=== PATIENT | female | born 1995 | race American Indian/Alaskan Native ===

== ENCOUNTER 2017-03-29 21:36 | Outpatient (CLI) | payer MEDICAID ==
[2017-03-29] MEDS ORDERED: LACTATED RINGERS 500 ML IV ONE (22:27)
[2017-03-29 22:58] LABS: Bacteria,Urine 1+ /HPF (Negative); Bilirubin,Urine NEG (Negative); Blood,Urine NEG (Negative); Color,Urine Yellow (Yellow); Mucus,Urine FEW /HPF; Nitrite,Urine NEG (Negative); Protein,Urine <15 mg/dL mg/dL (Negative); Urobilinogen,Urine < 2.0 mg/dL (<2.0)
[2017-03-29] MEDS ORDERED: ANCEF IM ONE (23:47)
== END 2017-03-29 21:37 | disposition home or self-care (01) ==
LOC: TRG 21:36
PROVIDERS: ATTEND Obstetrics & Gynecology
DX: O26.892 Other specified pregnancy related conditions, second trimester (principal); M54.9 Dorsalgia, unspecified; Z3A.22 22 weeks gestation of pregnancy
CPT/HCPCS: 59025; 81001; 96372; J0690; J7120

== ENCOUNTER 2017-04-04 15:23 | Outpatient (CLI) | payer MEDICAID ==
[2017-04-04 16:01] VITALS: BP 106/67
[2017-04-04] MEDS ORDERED: VISTARIL PO ONE (16:12)
[2017-04-04] MEDS ORDERED: ZOFRAN IV ONE (16:12)
[2017-04-04] MEDS ORDERED: LACTATED RINGERS 1,000 ML IV ONE (16:12)
[2017-04-04] MEDS ORDERED: ROCEPHIN/NS 1 GM/50 ML 1 GM/50 ML BAG IV SCH (17:45)
[2017-04-04] MEDS ORDERED: PERCOCET 5/325 PO ONE (19:23)
[2017-04-04] MEDS ORDERED: LACTATED RINGERS 1,000 ML ONE (19:23)
[2017-04-04] MEDS ORDERED: cefTRIAXone 1 GM in NACL 0.9% 20 ML IV SCH (19:30)
[2017-04-04 19:34] LABS: Alanine Aminotransferase 40 units/L (7-56); Albumin 3.8 g/dL (3.9-5); BUN/Creatinine Ratio 16; Blood Urea Nitrogen 8 mg/dL (7-17); Calcium 8.7 mg/dL (8.4-10.2); Hemolysis Index 3; Lipase 20 units/L (13-60)
[2017-04-04 19:43] LABS: Bacteria,Urine 1+ /HPF (Negative); Bilirubin,Urine NEG (Negative); Blood,Urine NEG (Negative); Color,Urine Yellow (Yellow); Mucus,Urine FEW /HPF; Nitrite,Urine NEG (Negative); Protein,Urine <15 mg/dL mg/dL (Negative)
[2017-04-04] MEDS ORDERED: LACTATED RINGERS 1,000 ML IV SCH (20:00)
== END 2017-04-04 21:10 | disposition home or self-care (01) ==
LOC: TRG 15:23
PROVIDERS: ATTEND Obstetrics & Gynecology
DX: O47.02 False labor before 37 completed weeks of gestation, second trimester (principal); Z3A.23 23 weeks gestation of pregnancy
CPT/HCPCS: 36415; 59025; 80053; 81001; 82150; 83690; 87086; 96360; J0696; J2405; J7120; Q0177

== ENCOUNTER 2017-06-24 20:38 | Inpatient (IN) | payer MEDICAID ==
[2017-06-24] MEDS ORDERED: LACTATED RINGERS 500 ML IV ONE (21:20)
[2017-06-24] MEDS ORDERED: LACTATED RINGERS 1,000 ML ONE (22:57)
[2017-06-24] MEDS ORDERED: POLYCILLIN/NS 2 GM/100 ML 2 GM/100 ML BAG IV ONE (22:57)
[2017-06-24] MEDS ORDERED: LACTATED RINGERS 1,000 ML IV SCH (23:15)
[2017-06-24 23:32] LABS: Hematocrit 32.6 % (30.3-42.9); Hemoglobin 10.7 gm/dl (10.1-14.3); Mean Corpuscular HGB Conc 33 % (30-34); Mean Corpuscular Hemoglobin 27 pg (28-32); Mean Corpuscular Volume 82 fl (79-97); Platelet Count 161 K/mm3 (140-440); Red Cell Distribution Width 12.7 % (13.2-15.2)
[2017-06-25] MEDS ORDERED: SUBLIMAZE IV PRN (00:29)
[2017-06-25] MEDS ORDERED: PITOCin/NS 20 UNIT/1000ML DRIP 20 UNITS/1,000 ML BAG IV SCH (03:00)
[2017-06-25] MEDS ORDERED: AMPICILLIN/NS 1 GM/50 ML 1 GM/50 ML BAG IV SCH (03:00)
[2017-06-25] MEDS ORDERED: ePHEDrine SULFATE ONE (03:03)
[2017-06-25] MEDS ORDERED: NARCAN 2 MG/2 ML IV PRN (03:41)
[2017-06-25] MEDS ORDERED: ePHEDrine SULFATE IV PRN (03:41)
--- NOTE | 2017-06-25 03:41 | Anesthesia Day of Surgery ---
Anesthesia Day of Surgery - Day of Surgery Patient Examined: Yes Patient H&P Reviewed: Yes Patient is NPO: Yes
--- NOTE | 2017-06-25 03:41 | Anesthesia Consultation ---
Anesthesia Consult and Med Hx Date of service: 06/25/17 - Airway Anesthetic Teeth Evaluation: Good ROM Head & Neck: Adequate Mental/Hyoid Distance: Adequate Mallampati Class: Class I Intubation Access Assessment: Good - Pulmonary Exam CTA: Yes - Cardiac Exam Cardiac Exam: RRR - Pre-Operative Health Status ASA Pre-Surgery Classification: ASA2 Proposed Anesthetic Plan: Epidural, Spinal - Pulmonary Hx Asthma: No COPD: No Hx Pneumonia: No - Cardiovascular System Hx Hypertension: No - Central Nervous System Hx Seizures: No Hx Psychiatric Problems: No - Endocrine Hx Renal Disease: No Hx End Stage Renal Disease: No Hx Hypothyroidism: No Hx Hyperthyroidism: No - Hematic Hx Anemia: No Hx Sickle Cell Disease: No - Other Systems Hx Alcohol Use: No
[2017-06-25] MEDS ORDERED: fentaNYL-BUPIV 2 MCG/ML-0.125% 200 MCG/100 ML BAG EPIDURAL SCH (04:00)
[2017-06-25] MEDS ORDERED: POLYCILLIN/NS 2 GM/100 ML 2 GM/100 ML BAG IV SCH (06:00)
[2017-06-25] MEDS ORDERED: MINERAL OIL ONE (07:16)
--- NOTE | 2017-06-25 07:44 | History and Physical Report ---
History of Present Illness Date of examination: 06/25/17 Date of admission: 06/24/17 22:14 Chief complaint: My water broke History of present illness: Patient is a 22 year old who presents at 35.1 weeks with complaint of leaking of fluid. Past History Past Medical History: no pertinent history Family/Genetic History: none Social history: single - Obstetrical History Expected Date of Delivery: 07/28/17 Actual Gestation: 35 Week(s) 2 Day(s) : 1 Para: 0 Medications and Allergies Allergies Allergy/AdvReac Type Severity Reaction Status Date / Time No Known Allergies Allergy Verified 04/04/17 16:07 Home Medications Medication Instructions Recorded Confirmed Last Taken Type Acetaminophen [Tylenol Extra 500 mg PO PRN 06/24/17 06/24/17 06/20/17 History Strength] Ibuprofen 600 mg PO Q6H PRN #30 tablet 06/25/17 Unknown Rx Vit-Fe Fumar-FA [ 1 tab PO QDAY #60 tablet 06/25/17 Unknown Rx Vitamin] Active Meds: Active Medications Ephedrine Sulfate (Ephedrine Sulfate) 10 mg IV Q2M PRN PRN Reason: Hypotension Fentanyl (Sublimaze) 100 mcg IV Q2H PRN PRN Reason: Pain Last Admin: 06/25/17 02:01 Dose: 100 mcg Lactated Ringer's (Lactated Ringers) 1,000 mls @ 125 mls/hr IV DIRECT KIN Last Admin: 06/25/17 02:56 Dose: 999 mls/hr Ampicillin Sodium (Ampicillin/Ns 1 Gm/50 Ml) 1 gm in 50 mls @ 100 mls/hr IV Q4HR KIN; Protocol Last Admin: 06/25/17 03:11 Dose: 100 mls/hr Oxytocin/Sodium Chloride (Pitocin/Ns 20 Unit/1000ml Drip) 20 units in 1,000 mls @ 125 mls/hr IV DIRECT KIN Fentanyl/Bupivacaine/Sodium Chlor (Fentanyl-Bupiv 2 Mcg/Ml-0.125%) 200 mcg in 100 mls @ 10 mls/hr EPIDURAL TITR KIN; Protocol Last Admin: 06/25/17 04:57 Dose: 10 mls/hr Naloxone HCl (Narcan 2 Mg/2 Ml) 0.2 mg IV Q5M PRN PRN Reason: Respiratory sedation Review of Systems All systems: negative Ears, nose, mouth and throat: deferred Genitourinary: leakage of fluid, contractions - Vital Signs Vital signs: Vital Signs Temp Pulse Resp BP 98.7 F 97 H 18 122/70 06/24/17 22:19 06/24/17 22:19 06/24/17 22:19 06/24/17 22:19 Temp Pulse Resp BP Pulse Ox 98.8 F 111 H 20 109/61 99 06/25/17 04:59 06/25/17 06:00 06/25/17 03:29 06/25/17 06:00 06/25/17 04:59 - Physical Exam Breasts: Positive: deferred Cardiovascular: Regular rate, Normal S1, Normal S2 Lungs: Positive: Clear to auscultation, Normal air movement Abdomen: Positive: normal appearance, soft, normal bowel sounds. Negative: distention, tenderness Vulva: both: normal Vagina: Positive: normal moisture. Negative: discharge Cervix: Negative: lesion, discharge Uterus: Positive: normal size, normal contour Adnexa: both: normal Anus/Rectum: Positive: normal perianal skin, heme negative. Negative: rectal mass, hemorrhoids Extremities: Deep Tendon Reflex Grade: Normal +2 - Obstetrical Cervical Dilatation: 1 Cervical Effacement Percentage: 50 station: -3 Uterine Contraction Frequency (min): 5 Uterine Contraction Pattern: Regular Results Result Diagrams: 06/24/17 22:40 Abnormal lab results 06/24/17 Range/Units 22:40 MCH 27 L (28-32) pg RDW 12.7 L (13.2-15.2) % All other labs normal. Assessment and Plan IUP at 35.1 weeks with prom and labor. Admit for active management. Patient may have epidural when ready. Anticipate
--- NOTE | 2017-06-25 07:49 | Procedure Note ---
OB Delivery Note - Delivery Date of Delivery: 06/25/17 Surgeon: RICCARDO RUIZ - Vaginal Delivery presentation: vertex Delivery position: OA Intrapartum events: labor-<37 weeks Delivery induction: none Delivery monitor: external FHT, external uterine Route of delivery: Delivery placenta: spontaneous Delivery cord: 3 umbilical vessels Episiotomy: none Delivery laceration: 2nd degree Delivery repair: vicryl Anesthesia: epidural Delivery comments: Viable male delivered over intact perineum with apgars 7,9 and weight 4 pounds 14 ounces with spontaneous cry. given to NICU for evaluation. Placenta delivered spontaneously and intact with 3vc. 2nd degree laceration repaired with 2.0 vicryl. Excellent hemostasis. Patient tolerated procedure well. - Infant A at 1 minute: 7 at 5 minutes: 8 Gender: Male
[2017-06-25] MEDS ORDERED: TYLENOL PO PRN (09:00)
[2017-06-25] MEDS ORDERED: PHENERGAN PO PRN (09:00)
[2017-06-25] MEDS ORDERED: TUCKS PAD TP PRN (09:00)
[2017-06-25] MEDS ORDERED: BENADRYL PO PRN (09:00)
[2017-06-25] MEDS ORDERED: SODIUM CHLORIDE FLUSH SYRINGE 10 ML IV PRN (09:00)
[2017-06-25] MEDS ORDERED: ZOFRAN IV PRN (09:00)
[2017-06-25] MEDS ORDERED: LANSINOH TP PRN (09:00)
[2017-06-25] MEDS ORDERED: LACTATED RINGERS 0 ML ONE (09:30)
[2017-06-25] MEDS ORDERED: DULCOLAX PR PRN (10:00)
[2017-06-25] MEDS: MOTRIN PO SCH ×3 (11:31→22:30)
[2017-06-25] MEDS: PRENATAL VITAMIN PO SCH (11:31)
[2017-06-25] MEDS: NORCO 5/325 PO PRN ×2 (13:17→22:03)
[2017-06-25 20:15] LABS: Hematocrit 26.2 % (30.3-42.9); Hemoglobin 8.6 gm/dl (10.1-14.3)
[2017-06-25] MEDS ORDERED: MILK OF MAGNESIA PO PRN (22:00)
[2017-06-26] MEDS: MOTRIN PO SCH ×4 (05:39→22:20)
[2017-06-26] MEDS ORDERED: BOOSTRIX IM ONE (06:00)
[2017-06-26] MEDS: NORCO 5/325 PO PRN ×2 (09:23→22:13)
[2017-06-26] MEDS: PRENATAL VITAMIN PO SCH (09:23)
[2017-06-27] MEDS: MOTRIN PO SCH ×2 (05:23→12:00)
--- NOTE | 2017-06-27 09:45 | Progress Note ---
Assessment and Plan PPD 2 s/p . Doing well. Patient without complaint. Baby in NICU. Will discharge home on today. Subjective - Subjective Date of service: 06/27/17 Interval history: Patient is a 22 year old who presents at 35.1 weeks with complaint of leaking of fluid. Patient reports: appetite normal, pain well controlled, ambulating normally [place]: in NICU Objective - Vital Signs Latest vital signs: Vital Signs Temp Pulse Resp BP BP Pulse Ox 06/27/17 08:16 98.6 F 71 20 99/52 97 06/27/17 01:44 98.5 F 78 14 113/64 97 06/26/17 16:28 98.2 F 96 H 20 116/60 Intake and Output 06/26/17 06/27/17 06/27/17 22:59 06:59 14:59 Intake Total 240 360 Balance 240 360 Intake: Oral 240 360 Other: Total, Intake Amount 240 360 # Voids Indwelling Catheter 1 Void 1 # Bowel Movements 0 - Exam Cardiovascular: Present: Regular rate, Normal S1, Normal S2 Lungs: Present: Clear to auscultation, Normal air movement Abdomen: Present: normal appearance, soft Vulva: both: normal Uterus: Present: normal, firm Extremities: Present: normal Incision: Present: normal, dry, intact
--- NOTE | 2017-06-27 09:47 | Discharge Summary ---
Providers - Providers Date of Admission: 06/24/17 22:14 Date of discharge: 06/27/17 Attending physician: RICCARDO RUIZ Primary care physician: RICCARDO RUIZ Hospitalization Reason for admission: labor, rupture of membranes Delivery: Laceration: 2nd degree Other procedures: none complications: none Discharge diagnosis: delivery [place] baby: male Condition at discharge: Good Disposition: DC-[id number] TO HOME OR SELFCARE Plan - Discharge Medications Prescriptions: Ibuprofen 600 mg PO Q6H PRN #30 tablet PRN Reason: Pain Vit-Fe Fumar-FA [ Vitamin] 1 tab PO QDAY #60 tablet - Provider Discharge Summary Activity: routine, no sex for 6 weeks, no heavy lifting 4 weeks, no strenuous exercise Diet: routine Instructions: routine Additional instructions: [] Smoking cessation referral if applicable(refer to patient education folder for contact #) [] Refer to [facility] Booklet Call your doctor immediately for: * Fever > 100.5 * Heavy vaginal bleeding ( >1 pad per hour) * Severe persistent headache * Shortness of breath * Reddened, hot, painful area to leg or breast * Drainage or odor from incision. * Keep incision clean and dry at all times and follow doctor's instructions regarding bathing/showering - Follow up plan Follow up: RICCARDO RUIZ MD [Primary Care Provider] - 6 Weeks
[2017-06-27] MEDS: PRENATAL VITAMIN PO SCH (12:00)
[2017-06-27 15:22] VITALS: BP 104/61
== END 2017-06-27 16:25 | disposition home or self-care (01) | DRG 775 ==
LOC: TRG 20:38 → LD 20:39 → TRG 22:13 → LD 22:14 → OB 06-25 09:56
PROVIDERS: ADMIT Obstetrics & Gynecology; ATTEND Obstetrics & Gynecology
PROC: 10E0XZZ Delivery of Products of Conception, External Approach (ICD-10-PCS; principal; 2017-06-25)
PROC: 0KQM0ZZ Repair Perineum Muscle, Open Approach (ICD-10-PCS; 2017-06-25)
PROC: 3E0R3BZ Introduction of Anesthetic Agent into Spinal Canal, Percutaneous Approach (ICD-10-PCS; 2017-06-25)
PROC: 00HU33Z Insertion of Infusion Device into Spinal Canal, Percutaneous Approach (ICD-10-PCS; 2017-06-25)
DX: O60.14X0 Preterm labor third trimester with preterm delivery third trimester, not applicable or unspecified (principal); O70.1 Second degree perineal laceration during delivery; O42.013 Preterm premature rupture of membranes, onset of labor within 24 hours of rupture, third trimester; Z3A.35 35 weeks gestation of pregnancy; Z37.0 Single live birth; Z79.899 Other long term (current) drug therapy
CPT/HCPCS: 36415; 85014; 85018; 85027; 86592; 86850; 86900; 86901; 88307; 90471; 99211; G0463; J0290; J2590; J3010; J7120